=== PATIENT | male | born 1970 | race Caucasian/White ===

== ENCOUNTER 2018-03-19 22:21 | Emergency (ER) | payer SELFPAY ==
[~2018-03-19] VITALS: Ht 182.9 cm; Wt 122.7 kg
[2018-03-19 22:39] VITALS: Ht 182.9 cm; Wt 122.7 kg
[2018-03-19] MEDS ORDERED: LISINOPRIL2.5 MG (22:40)
[2018-03-19] MEDS ORDERED: VOLTAREN75 MG PO (23:28)
[2018-03-20 00:04] VITALS: BP 135/82
== END 2018-03-20 00:05 | disposition home or self-care (01) ==
LOC: D.ER 22:21
DX: M25.511 Pain in right shoulder (principal); I10 Essential (primary) hypertension